=== PATIENT | female | born 1995 | race Caucasian/White ===

== ENCOUNTER 2020-07-23 21:51 | Emergency (ER) | payer SELFPAY ==
[2020-07-23 22:06] VITALS: BP 131/88; PULSE 105; RESP 16; TEMP 37; O2SAT 99; BMI 24.0
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
[2020-07-23 23:51] VITALS: BP 122/84; PULSE 86; RESP 18; O2SAT 98
[2020-07-24 05:10] VITALS: BP 112/84; PULSE 86; RESP 18; O2SAT 99
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
== END 2020-07-24 06:27 | disposition home or self-care (01) ==
PROVIDERS: Emergency Provider Nurse Practitioner Family
DX: R51 Headache (principal); R42 Dizziness and giddiness; Y04.2XXA Assault by strike against or bumped into by another person, initial encounter
CPT/HCPCS: 12345; 70450; 72125; 99282

== ENCOUNTER 2020-09-08 07:28 | Emergency (ER) | payer BC, SELFPAY ==
[2020-09-08 07:34] VITALS: BP 121/69; PULSE 76; RESP 16; TEMP 36.7; O2SAT 100; BMI 21.8
--- NOTE | 2020-09-08 07:40 | ED_ITS ---
HPI - General Adult General: Chief complaint: Extremity Problem,Nontraumatic Stated complaint: Collarbone swelling/pain Time Seen by Provider: 09/08/20 07:34 History of Present Illness: HPI narrative: Patient is a 24-year-old female comes to the ED with left collarbone/shoulder pain. Symptoms started approximately 3 days ago. She says she notices some tenderness on the collarbone and swelling over the past 3 days. Denies any injury or trauma to cause pain. She rates pain a 4 out of 10. Pain is not pleuritic. She says that some shoulder movements do cause pain. Such as moving arm posterior/ behind back. Patient says she does not want any pain meds while here in the ED. Denies fever, chills, shortness of breath, chest pain, abdominal pain, nausea/vomiting, bladder or bowel symptoms. Patient denies being . Associated symptoms: Deny chest pain, dyspnea, headache(s), nausea, rash, palpitations or vomiting Review of Systems Const: Denies: fever(s), chills or fatigue Eyes: Denies: change in vision or eye discomfort ENMT: Denies: throat pain, odynophagia, nasal discharge or nasal congestion Card: Denies: chest pain, palpitations, edema, swelling of feet/ankles, dyspnea on exertion or orthopnea Resp: Denies: dyspnea, productive cough or non-productive cough GI: Denies: abdominal pain, nausea, vomiting, diarrhea, constipation or hematochezia : Denies: flank pain, dysuria or hematuria Musc: Reports: joint pain (Left shoulder/collarbone pain); Denies: neck pain, back pain or extremity swelling Skin/Breast: Denies: rash or new lesions Neuro: Denies: headache(s), numbness in extremities or weakness in extremities Physical Exam Const: COMMON NORMALS: no acute distress, patient oriented x3, healthy appearing and alert GENERAL APPEARANCE: cooperative and comfortable HENMT: COMMON NORMALS: normocephalic HEAD & SCALP: normocephalic MOUTH: Normal oral and palatal mucosa present THROAT: posterior oropharynx normal and uvula midline Neck/C-Spine: COMMON NORMALS: supple GENERAL: Yes normal visual inspection Resp: COMMON NORMALS: normal respiratory effort, No retractions, No use of accessory muscles and clear to auscultation bilaterally AUSCULTATION: clear to auscultation bilaterally Cardio: COMMON NORMALS: regular rate, regular rhythm, S1 normal heart sound present, S2 normal heart sound present, No gallops present (Cardio), No clicks present (Cardio), No murmurs present (Cardio) and Peripheral pulses 2+ throughout RATE: regular rate RHYTHM: regular rhythm HEART SOUNDS: S1 normal heart sound present and S2 normal heart sound present PERIPHERAL PULSES: Peripheral pulses 2+ throughout GI: COMMON NORMALS: Normal to inspection, nondistended, normoactive bowel sounds present, Soft to palpation, non-tender and no masses PALPATION: Yes Soft to palpation : COMMON NORMALS: Yes no CVA tenderness BLADDER/KIDNEY EXAM: Yes no CVA tenderness Back/Pelvis: COMMON NORMALS: no CVA tenderness Extremity: NARRATIVE EXTREMITY EXAM: Left shoulder?patient's left collarbone has no edema, visible tenting. Tenderness upon palpation of collarbone. Full range of motion. Neurovascular intact distally. GENERAL: Yes normal exam ex cept as noted Neuro: COMMON NORMALS: patient oriented x3 and moves all extremities SENSORIUM/ORIENTATION: Yes alert Skin: GENERAL SKIN EXAM: dry skin Course Vital Signs: Vital signs: Vital Signs Temperature 98.1 F 09/08/20 07:34 Pulse Rate 83 09/08/20 07:41 Respiratory Rate 16 09/08/20 07:41 Blood Pressure 121/69 09/08/20 07:41 Pulse Oximetry 99 09/08/20 07:41 MDM - General Adult MDM Narrative: Medical decision making narrative: Patient is a 24-year-old female comes to the ED with left collarbone/shoulder pain. Denies any injury or trauma to cause pain. Physical exam shows a healthy patient with no visible tenting or swelling seen around the collarbone. There is some tenderness upon palpation of the left collarbone. Neuro vas distally intact. X-rays of chest s howed no acute findings and x-ray of left shoulder showed no acute fractures or findings. Patient was diagnosed with collarbone pain and told to ice the area and take prescribed ibuprofen to help with pain. Return to ED precautions given. Follow-up with PCP in 7 to 10 days for reevaluation. Patient understood and agreed with plan. Imaging Data^: CXR: Attestation: I personally reviewed and interpreted this imaging study as follows: Radiologist's impression: [address] [place] [address] XRay Report Signed Patient: Keren Blanco Unit #: [id number] : 1995 Age/Sex: 24 / F ADM Date: 09/08/20 Loc: ER Room/Bed: Attending Dr: Ordering Provider/Ordering MD: Kendrick Servin Date of Service: 09/08/20 Procedure(s): XR chest 1V portable [id number] Accession Number(s): [id number] Report Number: [id number] PROCEDURE INFORMATION: Exam: XR Chest, 1 View Exam date and time: 09/08/2020 7:48 AM Age: 24 years old Clinical indication: Chest pain; Additional info: Left upper chest/collar bone pain TECHNIQUE: Imaging protocol: XR of the chest Views: 1 view. COMPARISON: No relevant prior studies available. FINDINGS: Lungs: Unremarkable. No consolidation. Pleural space: Unremarkable. No pleural effusion. No pneumothorax. Heart/Mediastinum: Unremarkable. No cardiomegaly. Bones/joints: Unremarkable. XR/XR chest 1V portable [id number] IMPRESSION: No acute findings. Dictated By: Vishal Jackson Signed By: Vishal Jackson Signed Date/Time: 09/08/20802 DD/ 1 Xray Ortho: Attestation: I personally reviewed and interpreted this imaging study as follows: Radiologist's impression: [address] [place] [address] XRay Report Signed Patient: Keren Blanco Unit #: [id number] : 1995 Age/Sex: 24 / F ADM Date: 09/08/20 Loc: ER Room/Bed: Attending Dr: Ordering Provider/Ordering MD: Kendrick Servin Date of Service: 09/08/20 Procedure(s): XR shoulder LT min 2V* [id number] Accession Number(s): [id number] Report Number: [id number] PROCEDURE INFORMATION: Exam: XR Left Shoulder Exam date and time: 09/08/2020 7:48 AM Age: 24 years old Clinical indication: Pain; Shoulder; Left; Additional info: Left collar bone/shoulder pain TECHNIQUE: Imaging protocol: XR Left shoulder. Views: 2 or more views. COMPARISON: No relevant prior studies available. FINDINGS: Bones/joints: Normal. Soft tissues: Normal. XR/XR shoulder LT min 2V* [id number] IMPRESSION: No acute findings. Dictated By: Vishal Jackson Signed By: Vishal Jackson Signed Date/Time: 09/08/20801 DD/ 0 Discharge Plan Discharge Patient Disposition: Home Clinical Impression: Collar bone pain Condition: Stable Prescriptions: New ibuprofen 600 mg tablet 600 mg PO Q8H PRN (Reason: pain) Qty: 30 RF: 0 Discharge Orders: Discharge Order (Routine); Ordered 09/08/20 Ordered By: Kendrick Servin Discharge Diet: Regular Discharge Activity: Increase activity as tolerated Activity Restrictions/Additional Instructions: Follow-up with medical provider as directed in 7 to 10 days. Ice and rest the left shoulder. Take medications as prescribed. Return to the ER or your medical provider if condition worsens. Please read and understand discharge instructions. If any questions, please ask. Coding Level of Care Code ED Onshore Diver for [facility] Fwd Exam Comprehensive
[2020-09-08 07:41] VITALS: BP 121/69; PULSE 83; RESP 16; O2SAT 99
[2020-09-08 08:21] VITALS: BP 126/69; PULSE 66; RESP 16; TEMP 37.1; O2SAT 99
== END 2020-09-08 08:23 | disposition home or self-care (01) ==
PROVIDERS: Emergency Provider Physician Assistant
DX: M25.512 Pain in left shoulder (principal)
CPT/HCPCS: 12345; 71045; 73030; 99282

== ENCOUNTER 2020-09-12 18:41 | Emergency (ER) | payer BC, SELFPAY ==
[2020-09-12 19:02] VITALS: BP 133/75; PULSE 79; RESP 18; TEMP 37.3; O2SAT 98; BMI 21.6
--- NOTE | 2020-09-12 19:16 | XR_ITS ---
WS: [id number] Exam: XR chest 1V portable [id number] Date/Time of Exam: 09/12/2020 7:24 PM Reason For Exam: Dyspnea, cough Comparison 09/08/2020. Findings: The lungs are clear and fully expanded. Costophrenic angles are sharp. No infiltrates. Bronchovascula r relief appears normal. Cardiac silhouette is unremarkable. Bony elements are intact. XR/XR chest 1V portable [id number] IMPRESSION: Unremarkable chest radiograph.
--- NOTE | 2020-09-12 19:19 | ED_ITS ---
HPI - SOB/Dyspnea General: Chief Complaint: Shortness of Breath/Dyspnea Stated Complaint: trouble breathing Time Seen by Provider: 09/12/20 19:09 Source: patient Mode of arrival: ambulatory Limitations: no limitations History of Present Illness: HPI Narrative: Keren is a very nice 24-year-old female who comes in with a 2-day history of shortness of breath, cough and fever. Patient had a known COVID-19 exposure and earlier today was tested at [facility] and tested positive for the Covid virus. Patient continues to cough and wheeze and has a viral prodrome and she talked to her regular doctor who is from another area and she was told that she should get tested as she felt her symptoms were progressing rather rapidly. Patient here appears in no acute distress and her vital signs are stable. She does have audible wheezing upon entering the room. Patient has no medical comorbidities that she is aware of. She has not tried anything at home for her symptoms she is unaware of anything that makes her feel better or worse. Her fever did respond to ibuprofen at home. Associated symptoms: Reports fever(s); Deny abdominal pain, chest pain, dizziness, extremity pain, hemoptysis, lightheadedness, nausea, orthopnea, palpitations, syncope or vomiting Review of Systems Const: Reports: fever(s), chills, body aches, fatigue and malaise Eyes: Denies: change in vision, blurry vision, photophobia, eye discomfort, eye discharge, eye redness or yellow eyes ENMT: Denies: throat pain, odynophagia, hoarseness, swelling of lips/tongue, ear or mastoid pain, ear discharge, change in hearing or nasal discharge Card: Denies: chest pain, palpitations, irregular heart rhythm, edema, lightheadedness, syncope, pre-syncope, dyspnea on exertion or orthopnea Resp: Reports: dyspnea, non-productive cough and wheezing; Denies: productive cough or hemoptysis GI: Denies: abdominal pain, nausea, vomiting, hematemesis, coffee ground emesis, heartburn, diarrhea, constipation, GI cramping, hematochezia or melena : Denies: flank pain, dysuria, urinary frequency, urinary urgency or hematuria Musc: Denies: neck pain, back pain, extremity pain, extremity swelling, joint pain, joint swelling, joint redness, joint warmth or joint stiffness Skin/Breast: Denies: rash, pruritus, erythema, skin pain or skin tenderness Neuro: Denies: headache(s), numbness in extremities, weakness in extremities, sensory changes, lack of coordination, difficulty walking, dizziness, vertigo, confusion, Slurred speech present or seizure-like activity Karthik/Lymph: Denies: easy bruising, easy bleeding, petechiae, purpura or enlarged lymph nodes All/Imm: Denies: urticaria, throat swelling, tongue swelling, facial swelling or acute wheezing PFSH ED PFSH: Medical History No pertinent past medical history Physical Exam Const: COMMON NORMALS: no acute distress, patient oriented x3, no limitations and alert GENERAL APPEARANCE: cooperative HENMT: COMMON NORMALS: normocephalic, atraumatic, external ears normal, EAC's normal and Normal external nose present HEAD & SCALP: normal to inspection, normocephalic and atraumatic FACE & SINUS: normal facial exam and face symmetric NOSE: Normal external nose present and Normal nares present EXTERNAL EAR: Yes external ears normal EXTERNAL AUDITORY CANAL: EAC's normal MOUTH: Normal oral and palatal mucosa present, lip normal and tongue normal Eye: COMMON NORMALS: Equal, round and reactive pupils present and conjunctivae normal GENERAL EYE: appearance normal, both eyes and all related structures ALIGNMENT: Yes alignment normal PERIORBITAL: periorbital findings normal EYELID: eyelids normal CONJUNCTIVA: Yes conjunctivae normal SCLERA: sclerae normal PUPIL: Yes Equal, round and reactive pupils present Neck/C-Spine: COMMON NORMALS: full ROM, no lymphadenopathy, supple, no meningeal signs and no JVD GENERAL: Yes normal visual inspection and Yes trachea midline Chest: COMMONS NORMALS: normal inspection of the chest and normal palpation of entire chest wall Resp: COMMON NORMALS: normal respiratory effort, No retractions, No use of accessory muscles and clear to auscultation bilaterally EFFORT & INSPECTION: Yes able to speak in complete sentences and Yes symmetric chest movement AUSCULTATION: clear to auscultation bilaterally, no crackles, no rales, rhonchi and wheezes Cardio: COMMON NORMALS: no JVD, regular rate, regular rhythm, S1 normal heart sound present and S2 normal heart sound present RATE: regular rate RHYTHM: regular rhythm HEART SOUNDS: S1 normal heart sound present, S2 normal heart sound present, no click, no gallops, no murmurs and no rubs GI: COMMON NORMALS: Soft to palpation and No hepatosplenomegaly present PALPATION: Yes Soft to palpation, No Tenderness to palpation present (GI), No Guarding due to palpation present (GI), No Rigid due to palpation, Yes No hepatosplenomegaly present, No Hernia present, No Palpable mass present and No Pulsatile mass present : COMMON NORMALS: Yes no CVA tenderness BLADDER/KIDNEY EXAM: Yes no CVA tenderness EXTERNAL FEMALE EXAM: No Hernia present Back/Pelvis: COMMON NORMALS: no CVA tenderness, thoracic and lumbar spine normal to inspection, no thoracic nor lumbar tenderness and thoraco-lumbar ROM normal Extremity: COMMON NORMALS: normal to inspection, full ROM, capillary refill normal, no joint enlargement, no clubbing, cyanosis or edema and no calf tenderness Neuro: COMMON NORMALS: patient oriented x3, CN's II-XII intact bilaterally, moves all extremities, no focal motor deficits and no sensory deficits noted SENSORIUM/ORIENTATION: Yes alert MENINGEAL SIGNS: Yes no meningeal signs SPEECH: speech normal Psych: COMMON NORMALS: mental status grossly normal, Normal thought process present, cooperative, normal affect, speech normal and activity/motor behavior normal SPEECH: Yes normal speech THOUGHT PROCESS: Normal thought process present Skin: COMMON NORMALS: no rashes or lesions noted, turgor normal, no jaundice, no petechiae and no mottling GENERAL SKIN EXAM: no rashes or lesions noted and turgor normal Course Vital Signs: Vital signs: Vital Signs Temperature 99.2 F 09/12/20 19:02 Pulse Rate 85 09/12/20 21:10 Respiratory Rate 20 H 09/12/20 21:10 Blood Pressure 130/70 09/12/20 21:10 Pulse Oximetry 97 09/12/20 21:10 MDM - SOB/Dyspnea MDM Narrative: Medical decision making narrative: 1921 - Keren is a nice 24-year-old female comes in with a 2-day history of cough, fever and shortness of breath. She has no chronic medical problems. Her vital signs are stable and normal. Differential includes COVID-19 viral pneumonitis, secondary pneumonia, reactive airway disease, pneumothorax among many others. I will proceed with a work-up for viral syndrome respiratory type illness. We will give the patient fluids and steroids along with inhaling breathing treatments here to see how she responds. [id number] Keren is a nice 22-year-old female comes in after testing positive for the Covid virus. Her labs are unremarkable here, she is not hypoxic and her wheezing is cleared after breathing treatment. Feeling better ready go home. I was going to discharge her home with a inhaler but she is adamant she wants Nebules that she has a nebulizer at home. I have instructed her that this could help spread the virus and she will take precautions and not use it around anybody. She understands she needs to quarantine herself. This time she is not hypoxic and has no respiratory distress and does not appear septic. She is going to buy a pulse oximeter and return if her pulse ox is below 90 for any significant amount of time. Otherwise she denies any complaints or concerns. Lab Data: Labs: Lab Results 09/12/20 09/12/20 09/12/20 Range/Units 19:45 19:45 19:45 WBC 10.8 H (4.0-10.0) 10^3/ uL RBC 5.21 (4.1-5.3) 10^6/u L Hgb 16.1 H (11.5-15.3) g/dL Hct 46.6 (37.0-47.0) % MCV 89.4 (81-99) fL MCH 30.9 (28.0-34.0) pg MCHC 34.5 (30.0-36.0) g/dL RDW 12.3 (12.1-15.1) % Plt Count 326 (130-400) 10^3/c mm MPV 10.5 H (7.4-10.4) fL Neut % (Auto) 65.5 % Lymph % (Auto) 17.9 % [place] % (Auto) 10.9 % Eos % (Auto) 4.4 % Baso % (Auto) 1.1 % Neut # (Auto) 7.07 (1.8-7.7) 10^3/u L Lymph # (Auto) 1.9 (0.8-4.8) 10^3/u L [place] # (Auto) 1.2 H (0.2-0.9) 10^3/u L Eos # (Auto) 0.5 (0.0-0.8) 10^3/u L Baso # (Auto) 0.1 (0.0-0.1) 10^3/u L Nucleated RBC % (a uto) 0 % Nucleated RBCs # 0.0 /100WBC PT 13.50 (12.1-14.9) SECO NDS INR 1.00 (0.8-1.2) Fibrinogen 529 H (174-498) mg/dL D-Dimer 0.39 (0-0.59) ug/mIFE U Sodium 138 (136-145) mmol/L Potassium 3.7 (3.5-5.1) mmol/L Chloride 102 (98-107) mmol/L Carbon Dioxide 22 (22-29) mmol/L Anion Gap 17.7 (5-19) BUN 9 (6-20) mg/dL Creatinine 0.6 (0.5-0.9) mg/dL GFR Calculation 125.0 (90-130) mL/min Glucose 89 (65-115) mg/dL Calculated Osmolal ity 284 L (285-295) mOsm/k g Calcium 10.0 (8.5-10.5) mg/dL Magnesium 2.2 (1.7-2.3) mg/dL Total Bilirubin 0.4 (0.15-1.2) mg/dL AST 30 (0-32) U/L ALT 36 H (0-33) U/L Alkaline Phosphata se 87 (35-105) IU/L Lactate Dehydrogen ase 228 H (135-214) U/L C-Reactive Protein 25.5 H (0.0-4.9) mg/L Total Protein 8.9 H (6.6-8.7) g/dL Albumin 5.1 (3.5-5.2) g/dL Globulin 3.8 (1.3-4.6) g/dL Procalcitonin 0.08 (0-0.5) ng/mL HCG, Qual (Negative) Influenza Type A A g (Negative) Influenza Type B A g (Negative) 09/12/20 09/12/20 Range/Units 19:45 20:40 WBC (4.0-10.0) 10^3/ uL RBC (4.1-5.3) 10^6/u L Hgb (11.5-15.3) g/dL Hct (37.0-47.0) % MCV (81-99) fL MCH (28.0-34.0) pg MCHC (30.0-36.0) g/dL RDW (12.1-15.1) % Plt Count (130-400) 10^3/c mm MPV (7.4-10.4) fL Neut % (Auto) % Lymph % (Auto) % [place] % (Auto) % Eos % (Auto) % Baso % (Auto) % Neut # (Auto) (1.8-7.7) 10^3/u L Lymph # (Auto) (0.8-4.8) 10^3/u L [place] # (Auto) (0.2-0.9) 10^3/u L Eos # (Auto) (0.0-0.8) 10^3/u L Baso # (Auto) (0.0-0.1) 10^3/u L Nucleated RBC % (a uto) % Nucleated RBCs # /100WBC PT (12.1-14.9) SECO NDS INR (0.8-1.2) Fibrinogen (174-498) mg/dL D-Dimer (0-0.59) ug/mIFE U Sodium (136-145) mmol/L Potassium (3.5-5.1) mmol/L Chloride (98-107) mmol/L Carbon Dioxide (22-29) mmol/L Anion Gap (5-19) BUN (6-20) mg/dL Creatinine (0.5-0.9) mg/dL GFR Calculation (90-130) mL/min Glucose (65-115) mg/dL Calculated Osmolal ity (285-295) mOsm/k g Calcium (8.5-10.5) mg/dL Magnesium (1.7-2.3) mg/dL Total Bilirubin (0.15-1.2) mg/dL AST (0-32) U/L ALT (0-33) U/L Alkaline Phosphata se (35-105) IU/L Lactate Dehydrogen ase (135-214) U/L C-Reactive Protein (0.0-4.9) mg/L Total Protein (6.6-8.7) g/dL Albumin (3.5-5.2) g/dL Globulin (1.3-4.6) g/dL Procalcitonin (0-0.5) ng/mL HCG, Qual Negative (Negative) Influenza Type A A g Negative (Negative) Influenza Type B A g Negative (Negative) Discharge Plan Discharge Patient Disposition: Home Clinical Impression: COVID-19 virus infection, Viral pneumonitis Condition: Stable Prescriptions: New Zofran 4 mg tablet 4 mg PO Q6H PRN (Reason: nausea and vomiting) Qty: 20 RF: 0 Decadron 6 mg tablet 6 mg PO DAILY Qty: 10 RF: 0 albuterol sulfate 2.5 mg/0.5 mL solution for nebulization 5 mg INHALATION Q6H PRN (Reason: shortness of breath or wheezing) Qty: 30 RF: 0 No Action dexamethasone 6 mg Tablet 6 mg PO DAILY RF: 0 nicotine (polacrilex) 4 mg Gum See Rx Instructions .ROUTE .COMPLEX RF: 0 albuterol sulfate 90 mcg/actuation Hfa Aerosol Inhaler 1 inh INHALATION QID PRN (Reason: Shortness Of Breath) RF: 0 escitalopram oxalate 10 mg tablet 10 mg PO DAILY RF: 0 Discharge Orders: Discharge Order (Routine); Ordered 09/12/20 Ordered By: Patty Cortes Discharge Diet: Advance as tolerated Discharge Activity: Limit activity as instructed Patient Instructions: Viral Pneumonia (ED) Activity Restrictions/Additional Instructions: Please return to the ER immediately for any of the signs or symptoms listed on your discharge instruction sheets, worsening/changing of your symptoms, you are not getting better as quickly as expected, or for ANY other cause or concerns. Take your steroids as prescribed. By a pulse oximeter at home and monitor your oxygen saturation. If it goes below [address] for any significant amount of time please return to the ER for recheck. As you are insisting on using your nebulizer at home be certain no one is around as this can aerosolized the viral COVID-19 particles. Keep yourself at home and quarantine until you a re cleared by the health department or your primary care physician. Coding Level of Care Code ED Commissions Specialist for [facility] Fwd Exam Comprehensive
[2020-09-12] MEDS: dexamethasone 4 mg/mL INJ 10 MG IVP (19:40)
[2020-09-12] MEDS: sodium chloride 0.9% 1,000 ML 999 ML IV (19:40)
[2020-09-12 19:50] VITALS: PULSE 75; RESP 18; O2SAT 97
[2020-09-12] MEDS: albuterol 8 gm MDI 6 PUFF INHALATION (19:50)
[2020-09-12 20:05] VITALS: PULSE 83; O2SAT 98
[2020-09-12 20:24] LABS: Procalcitonin 0.08 ng/mL (0-0.5)
[2020-09-12 20:35] LABS: Basophils # 0.1 10^3/uL (0.0-0.1); Basophils % 1.1 %; Eosinophils # 0.5 10^3/uL (0.0-0.8); Eosinophils % 4.4 %; Hematocrit 46.6 % (37.0-47.0); Hemoglobin 16.1 g/dL (11.5-15.3); Lymphocytes # 1.9 10^3/uL (0.8-4.8); Lymphocytes % 17.9 %; Mean Corpuscular HGB Conc 34.5 g/dL (30.0-36.0); Mean Corpuscular Hemoglobin 30.9 pg (28.0-34.0); Mean Corpuscular Volume 89.4 fL (81-99); Mean Platelet Volume 10.5 fL (7.4-10.4); Monocytes # 1.2 10^3/uL (0.2-0.9); Monocytes % 10.9 %; Neutrophils # 7.07 10^3/uL (1.8-7.7); Neutrophils % 65.5 %; Nucleated Red Blood Cells % 0 %; Platelet Count 326 10^3/cmm (130-400); Red Blood Count 5.21 10^6/uL (4.1-5.3); Red Cell Distribution Width 12.3 % (12.1-15.1); White Blood Count 10.8 10^3/uL (4.0-10.0)
[2020-09-12 20:36] LABS: Alanine Aminotransferase 36 U/L (0-33); Albumin Level 5.1 g/dL (3.5-5.2); Alkaline Phosphatase 87 IU/L (35-105); Anion Gap 17.7 (5-19); Aspartate Amino Transferase 30 U/L (0-32); Blood Urea Nitrogen 9 mg/dL (6-20); C Reactive Protein 25.5 mg/L (0.0-4.9); Carbon Dioxide 22 mmol/L (22-29); Chloride 102 mmol/L (98-107); Globulin 3.8 g/dL (1.3-4.6); Glucose 89 mg/dL (65-115); Lactate Dehydrogenase 228 U/L (135-214); Magnesium 2.2 mg/dL (1.7-2.3); Osmolality Calculated 284 mOsm/kg (285-295); Potassium 3.7 mmol/L (3.5-5.1); Sodium 138 mmol/L (136-145); Total Bilirubin 0.4 mg/dL (0.15-1.2); Total Protein 8.9 g/dL (6.6-8.7)
[2020-09-12 20:45] LABS: Fibrinogen 529 mg/dL (174-498)
[2020-09-12 20:48] LABS: D Dimer 0.39 ug/mIFEU (0-0.59)
[2020-09-12 21:06] LABS: HCG, Serum Qual Negative (Negative)
[2020-09-12 21:10] VITALS: BP 130/70; PULSE 85; RESP 20; O2SAT 97
[2020-09-12 21:32] LABS: Influenza A by IFA Negative (Negative); Influenza B by IFA Negative (Negative)
[2020-09-12] MEDS: ipratropium-albuterol 3 mL Neb 9 ML INHALATION (21:50)
[2020-09-12 22:11] VITALS: BP 130/70; PULSE 84; RESP 19; O2SAT 97
== END 2020-09-12 22:13 | disposition home or self-care (01) ==
PROVIDERS: Emergency Provider Emergency Medicine
DX: U07.1 COVID-19 (principal); J12.89 Other viral pneumonia
CPT/HCPCS: 12345; 71045; 80053; 83615; 83735; 84145; 84703; 85025; 85378; 85384; 85610; 86140; 87040; 87804; 94640; 96361; 96374; 96375; 96376; 99283; 99284; J1100; J3535; J7030

== ENCOUNTER → 2021-01-17 11:04 | Outpatient (BNVA) | payer BC, SELFPAY | PROVIDERS: Visit Provider Obstetrics & Gynecology | DX: Z30.09 Encounter for other general counseling and advice on contraception (principal) | CPT/HCPCS: 81025 ==

== ENCOUNTER → 2021-01-22 14:13 | Outpatient (BNVA) | payer BC, SELFPAY | PROVIDERS: Visit Provider Obstetrics & Gynecology | DX: Z30.432 Encounter for removal of intrauterine contraceptive device (principal) | CPT/HCPCS: 81025 ==

== ENCOUNTER 2021-05-29 14:11 | Outpatient (CLI) | payer BC, SELFPAY ==
--- NOTE | 2021-05-29 14:51 | PFTS_ITS ---
Date of Study:05/29/21 Date of Dictation: MECHANICS: Forced vital capacity (FVC) is normal. Forced expiratory volume in one second (FEV1) is normal. FEV1/FVC is normal. FLOW VOLUME LOOP: Normal. LUNG VOLUMES: Not measured DIFFUSING CAPACITY FOR CARBON MONOXIDE: Not measured. INTERPRETATION: The postbronchodilator spirometry is normal. There is no significant postbronchodilator response. MTDD
== END 2021-05-29 14:12 | disposition home or self-care (01) ==
LOC: RT 14:15
PROVIDERS: Visit Provider Nurse Practitioner Family
DX: R06.2 Wheezing (principal); R05 Cough
CPT/HCPCS: 94060

== ENCOUNTER → 2021-11-20 09:30 | Outpatient (BNVA) | payer BC, SELFPAY | PROVIDERS: Visit Provider Nurse Practitioner Family | DX: Z20.822 Contact with and (suspected) exposure to COVID-19 (principal) | CPT/HCPCS: 87426 ==

== ENCOUNTER 2022-02-24 13:19 | Emergency (ER) | payer BC, SELFPAY ==
[2022-02-24 13:34] VITALS: BP 123/78; PULSE 62; RESP 16; TEMP 36.8; O2SAT 93; BMI 20.5
== END 2022-02-24 15:50 | disposition left against medical advice (07) ==
PROVIDERS: Emergency Provider Family Medicine
DX: Z53.21 Procedure and treatment not carried out due to patient leaving prior to being seen by health care provider (principal); U07.1 COVID-19; J12.9 Viral pneumonia, unspecified
CPT/HCPCS: 81000